=== PATIENT | male | born 1970 | race Caucasian/White ===

== ENCOUNTER 2018-11-24 06:10 | Day surgery (SDC) | payer OTHER ==
[~2018-11-24] VITALS: Ht 165.1 cm; Wt 82.0 kg
[~2018-11-24 06:10] MED LIST: ACET325T33 PO; IBUP800T48 PO
[2018-11-24 07:15] VITALS: Ht 165.1 cm; Wt 82.0 kg
[2018-11-24 07:21] VITALS: BP 126/83; PULSE 85; RESP 20
[2018-11-24] MEDS ORDERED: VITAMIN D (08:19)
[2018-11-24] MEDS ORDERED: CHOLESTEROL MED (08:19)
[2018-11-24] MEDS ORDERED: FENTAnyl 50 MCG/ML VIAL ONE (09:09)
[2018-11-24] MEDS ORDERED: MIDAZOLAM 1 MG/ML 2 ML INJ ONE ×2 (09:10)
[2018-11-24 09:20] VITALS: BP 118/82; PULSE 85; RESP 18
== END 2018-11-24 11:14 | disposition home or self-care (01) ==
LOC: GIL 06:10
PROVIDERS: ATTEND Internal Medicine Gastroenterology
DX: K64.8 Other hemorrhoids (principal); D12.8 Benign neoplasm of rectum
CPT/HCPCS: 45380; 88305; J2250; J3010; Z7610